=== PATIENT | male | born 1965 | race Caucasian/White ===

== ENCOUNTER → 2018-08-09 | Outpatient (CLI) | payer OTHER | LOC: ULTRA 12:18 | DX: R10.30 Lower abdominal pain, unspecified (principal); R19.09 Other intra-abdominal and pelvic swelling, mass and lump ==

== ENCOUNTER → 2018-08-23 | Outpatient (CLI) | payer OTHER | LOC: CAT 09:04 | DX: N43.3 Hydrocele, unspecified (principal); I70.0 Atherosclerosis of aorta ==